=== PATIENT | female | born 1985 | race Caucasian/White ===

== ENCOUNTER → 2018-03-16 | Outpatient (CLI) | payer BC | LOC: OD 11:12 | PROVIDERS: ATTEND Nurse Practitioner | DX: N95.2 Postmenopausal atrophic vaginitis (principal) | CPT/HCPCS: 36415; 84702 ==

== ENCOUNTER → 2018-08-16 | Outpatient (CLI) | payer BC | LOC: OD 12:54 | PROVIDERS: ATTEND Surgery | DX: Z32.01 Encounter for pregnancy test, result positive (principal) | CPT/HCPCS: 36415; 84702 ==

== ENCOUNTER → 2018-08-28 | Outpatient (CLI) | payer BC | LOC: OD 13:05 | PROVIDERS: ATTEND Nurse Practitioner | DX: O20.9 Hemorrhage in early pregnancy, unspecified (principal) | CPT/HCPCS: 36415; 84702 ==

== ENCOUNTER → 2018-10-19 | Outpatient (CLI) | payer BC | LOC: OD 15:52 | PROVIDERS: ATTEND Obstetrics & Gynecology | DX: N92.6 Irregular menstruation, unspecified (principal) | CPT/HCPCS: 36415; 84144 ==

== ENCOUNTER → 2018-10-26 | Outpatient (CLI) | payer BC | LOC: OD 10:29 | PROVIDERS: ATTEND Obstetrics & Gynecology | DX: N92.6 Irregular menstruation, unspecified (principal) | CPT/HCPCS: 36415; 84144 ==

== ENCOUNTER → 2018-11-09 | Outpatient (CLI) | payer BC ==
[2018-11-09 09:14] LABS: ABSOLUTE EOSINOPHILS # (AUTO) 0.2 10^3/uL (0.0-0.6); ABSOLUTE LYMPHOCYTES (AUTO) 1.6 10^3/uL (0.5-4.7); ABSOLUTE MONOCYTES (AUTO) 0.4 10^3/uL (0.1-1.4); ABSOLUTE NEUT (AUTO) 2.8 10^3/uL (1.7-8.2); BASOPHILS % (AUTO) 0.7 % (0-2); EOSINOPHILS % (AUTO) 4.1 % (0-6); HEMATOCRIT 40.1 % (36.0-47.0); HEMOGLOBIN 13.7 g/dL (12.0-15.5); LYMPHOCYTES % (AUTO) 32.2 % (13-45); MEAN CORPUSCULAR HEMOGLOBIN 31.7 pg (27.0-33.4); MEAN CORPUSCULAR HGB CONC 34.2 g/dL (32.0-36.0); MEAN CORPUSCULAR VOLUME 93 fl (80-97); MONOCYTES % (AUTO) 7.1 % (3-13); PLATELET COUNT 266 10^3/uL (150-450); RED BLOOD COUNT 4.33 10^6/uL (3.72-5.28); RED CELL DISTRIBUTION WIDTH 12.6 % (11.5-14.0); SEGMENTED NEUTROPHILS % (AUTO) 55.9 % (42-78); TOTAL CELLS COUNTED % (AUTO) 100 %
[2018-11-09 09:57] LABS: FREE T4 (FREE THYROXINE) 0.81 ng/dL (0.78-2.19)
[2018-11-09 10:11] LABS: THYROID STIMULATING HORMONE 2.59 uIU/mL (0.47-4.68)
== END ==
LOC: OD 08:25
PROVIDERS: ATTEND Obstetrics & Gynecology
DX: N91.5 Oligomenorrhea, unspecified (principal); R53.83 Other fatigue
CPT/HCPCS: 36415; 83001; 84146; 84402; 84439; 84443; 85025

== ENCOUNTER → 2018-12-06 | Outpatient (CLI) | payer BC | LOC: OD 08:04 | PROVIDERS: ATTEND Obstetrics & Gynecology | DX: N91.5 Oligomenorrhea, unspecified (principal); R89.1 Abnormal level of hormones in specimens from other organs, systems and tissues | CPT/HCPCS: 36415; 84144; 84146 ==

== ENCOUNTER → 2019-01-14 | Outpatient (CLI) | payer BC | LOC: OD 09:59 | PROVIDERS: ATTEND Obstetrics & Gynecology | DX: N91.5 Oligomenorrhea, unspecified (principal) | CPT/HCPCS: 36415; 84144 ==

== ENCOUNTER → 2019-02-21 | Outpatient (CLI) | payer BC | LOC: LAB 10:06 | PROVIDERS: ATTEND Obstetrics & Gynecology | DX: N91.2 Amenorrhea, unspecified (principal) | CPT/HCPCS: 36415; 84702 ==

== ENCOUNTER → 2019-02-25 | Outpatient (CLI) | payer BC | LOC: OD 11:27 | PROVIDERS: ATTEND Obstetrics & Gynecology | DX: N91.2 Amenorrhea, unspecified (principal) | CPT/HCPCS: 36415; 84702 ==

== ENCOUNTER 2019-10-29 01:38 | Inpatient (IN) | payer BC ==
[2019-10-29] MEDS ORDERED: RINGERS SOLUTION,LACTATED 1,000 ML IV PRN (01:46)
[2019-10-29] MEDS ORDERED: PENICILLIN G POTASSIUM 5,000,000 UNIT in DEXTROSE 5%-WATER 100 ML IV ONE (01:46)
[2019-10-29 02:11] LABS: ABSOLUTE EOSINOPHILS # (AUTO) 0.1 10^3/uL (0.0-0.6); ABSOLUTE LYMPHOCYTES (AUTO) 1.8 10^3/uL (0.5-4.7); ABSOLUTE MONOCYTES (AUTO) 0.7 10^3/uL (0.1-1.4); ABSOLUTE NEUT (AUTO) 7.1 10^3/uL (1.7-8.2); BASOPHILS % (AUTO) 0.4 % (0-2); EOSINOPHILS % (AUTO) 1.2 % (0-6); HEMATOCRIT 36.6 % (36.0-47.0); HEMOGLOBIN 12.7 g/dL (12.0-15.5); LYMPHOCYTES % (AUTO) 18.9 % (13-45); MEAN CORPUSCULAR HEMOGLOBIN 32.4 pg (27.0-33.4); MEAN CORPUSCULAR HGB CONC 34.6 g/dL (32.0-36.0); MEAN CORPUSCULAR VOLUME 94 fl (80-97); MONOCYTES % (AUTO) 7.3 % (3-13); PLATELET COUNT 192 10^3/uL (150-450); RED BLOOD COUNT 3.91 10^6/uL (3.72-5.28); RED CELL DISTRIBUTION WIDTH 13.2 % (11.5-14.0); SEGMENTED NEUTROPHILS % (AUTO) 72.2 % (42-78); TOTAL CELLS COUNTED % (AUTO) 100 %; WHITE BLOOD COUNT 9.8 10^3/uL (4.0-10.5)
[2019-10-29 02:17] LABS: APPEARANCE,URINE SLIGHTLY-CLOUDY; BILIRUBIN,URINE NEGATIVE (NEGATIVE); COLOR,URINE YELLOW; GLUCOSE, URINE NEGATIVE (NEGATIVE); KETONES,URINE 20 mg/dL (NEGATIVE); LEUKOCYTE ESTERASE,URINE MODERATE (NEGATIVE); NITRITE,URINE NEGATIVE (NEGATIVE); PROTEIN,URINE 100 mg/dL (NEGATIVE); URINE SPECIFIC GRAVITY 1.017
[2019-10-29 02:32] LABS: URINE AMPHETAMINES SCREEN NEGATIVE; URINE BARBITURATES SCREEN NEGATIVE; URINE BENZODIAZEPINES SCREEN NEGATIVE; URINE COCAINE SCREEN NEGATIVE; URINE METHADONE SCREEN NEGATIVE; URINE PHENCYCLIDINE SCREEN NEGATIVE
[2019-10-29 02:41] LABS: URINE MARIJUANA (THC) SCREEN NEGATIVE
[2019-10-29] MEDS ORDERED: PENICILLIN G-K 5 MILLION UNIT VIAL ONE ×3 (03:10→12:40)
[2019-10-29] MEDS ORDERED: MISOPROSTOL 0.2 MG TABLET ONE (03:10)
[2019-10-29] MEDS ORDERED: OXYTOCIN/NORMAL SALINE 20 UNIT/1,000 ML RTUINJ ONE (03:10)
[2019-10-29] MEDS ORDERED: LIDOCAINE 1% INJ-PF (10 MG/ML) 30 ML SDV ONE (03:10)
[2019-10-29] MEDS ORDERED: OXYTOCIN 10 UNIT/ML VIAL ONE (03:10)
[2019-10-29] MEDS ORDERED: OXYTOCIN/NORMAL SALINE 20 UNIT/1,000 ML RTUINJ IV PRN ×2 (03:15→17:55)
[2019-10-29] MEDS ORDERED: ONDANSETRON HCL INJ/PF 4 MG/2 ML SDV ONE ×2 (05:23→11:00)
[2019-10-29] MEDS ORDERED: ONDANSETRON HCL INJ/PF 4 MG/2 ML SDV IV ONE (05:24)
--- NOTE | 2019-10-29 05:57 | Admission Physical ---
Datetime Report Generated by CPN: 10/29/2019 05:57 CURRENT ADMISSION Chief Complaint: Suspected Ruptured Membranes; Scheduled Induction of Labor Indication for Induction: PROM; Maternal Diabetes Admit Impression : Term, Intrauterine ; No Active Labor; Induction of Labor Admit Plan: Admit to Unit; Initiate Labor Induction Protocol ALLERGIES Medication Allergies: No Medication Allergies: No Known Allergies (10/29/2019) Latex: No Latex Allergies OBSTETRICAL HISTORY EDC: 10/28/2019 00:00 : 2 Para: 0 Term: 0 : 0 SAB: 0 IAB: 0 Ectopic: 0 Livin Cesareans: 0 VBACs: 0 Multiple Births: 0 Gestational Diabetes: No Rh Sensitization: No Incompetent Cervix: No ROBINA: No Infertility: Yes ART Treatment: No Uterine Anomaly: No IUGR: No Hx Previous C/S: No Macrosomia: No Hx Loss/Stillborn: No PIH: No Hx : No Placenta Previa/Abruption: No Depression/PP Depression: No PTL/PROM: No Post Hemorrhage: No Current Procedures: Ultrasound; NST Obstetrical History Comments: G1- SAB G2- current SEE RECORDS Alcohol: No Marijuana : No Cocaine: No Other Illicit Drugs: No Cigarettes: Never Smoker. [id number] MEDICAL HISTORY Diabetes: No Blood Transfusion: No Pulmonary Disease (Asthma, TB): Yes Breast Disease: Yes Hypertension: No Checker Surgery: No Heart Disease: No Hosp/Surgery: Yes Autoimmune Disorder: No Anesthetic Complications: No Kidney Disease: No Abnormal Pap Smear: No Neuro/Epilepsy: No Psychiatric Disorders: No Other Medical Diseases: No Hepatitis/Liver Disease: No Significant Family History: No Varicosities/Phlebitis: No Trauma/Violence : No Thyroid Dysfunction: No Medical History Comments: left breast lump removal, asthma INFECTIOUS HISTORY Gonorrhea: No Genital Herpes: No Chlamydia: No Tuberculosis: No Syphilis: No Hepatitis: No HIV/AIDS Exposure: No Rash or Viral Illness: No HPV: No PHYSICAL EXAM General: Normal HEENT: Normal Neurologic: Normal Thyroid: Normal Heart: Normal Lungs: Normal Breast: Normal Back: Normal Abdomen: Normal Genitourinary Exam: Normal Extremities: Normal DTRs: Normal Pelvic Type: Adequate Vital Signs: Reviewed; Within Normal Limits VAGINAL EXAM Dilatation: 2 Effacement: 70 Station: -2 MEMBRANES Pooling: Positive Membranes: Ruptured FETUS A EGA: 40.1 Monitoring: External US FHR- Baseline: 130 Variability: Moderate 6-25bpm Accelerations: 15X15 Decelerations: None FHR Category: Category I Estimated Weight (gm): 4000 Presentation: Vertex PLANS FOR LABOR AND DELIVERY Labor and Delivery: None Pain Management: None Feeding Preference: Breast Benefit of Breast Feed Discussed: Yes Circumcision: N/A INFORMED CONSENT Signature: with User ID: [email or web address]
[2019-10-29] MEDS: PENICILLIN G POTASSIUM 2,500,000 UNIT in DEXTROSE 5%-WATER 50 ML IV SCH ×3 (07:22→20:53)
[2019-10-29] MEDS ORDERED: ACETAMINOPHEN 325 MG TABLET PO ONE ×2 (08:06→18:51)
[2019-10-29] MEDS ORDERED: ACETAMINOPHEN 325 MG TABLET ONE ×2 (08:12→18:49)
[2019-10-29] MEDS ORDERED: ONDANSETRON HCL INJ/PF 4 MG/2 ML SDV IV PRN (10:59)
[2019-10-29] MEDS ORDERED: FENTANYL CITRATE INJ/PF 100 MCG/2 ML AMPUL ONE (11:08)
[2019-10-29] MEDS ORDERED: BUPIVACAINE HCL 0.25 % INJ/PF (2.5 MG/1 ML) 30 ML VIAL ONE (11:08)
[2019-10-29] MEDS ORDERED: PHENYLEPHRINE HCL INJ/PF 10 MG/1 ML SDV ONE (11:08)
[2019-10-29] MEDS ORDERED: LIDOCAINE 1.5%/EPINEPHRINE INJ 5 ML AMP ONE (11:08)
[2019-10-29] MEDS ORDERED: EPHEDRINE SULFATE INJ 50 MG/1 ML AMPULE ONE (11:08)
[2019-10-29] MEDS ORDERED: FENTANYL/BUPIVACAINE/NS/PF 300 MCG/150 ML RTUINJ EPI ONE (11:08)
[2019-10-29] MEDS ORDERED: NA PHOS,M-B/NA PHOS,DI-BA (ADULT) 133 ML ENEMA PR ONE ×2 (14:09)
[2019-10-29] MEDS ORDERED: IBUPROFEN 800 MG TABLET ONE (17:49)
[2019-10-29] MEDS ORDERED: HYDROCODONE/ACETAMINOPHEN 5-325 MG TABLET PO PRN (17:55)
[2019-10-29] MEDS ORDERED: DIBUCAINE 1% OINTMENT 56 GM TP PRN (17:55)
[2019-10-29] MEDS ORDERED: GLYCERIN/WITCH HAZEL LEAF 1 EACH MED..WIPE TP PRN (17:55)
[2019-10-29] MEDS ORDERED: DIPH/PERTUSS(ACELL)/TETANUS VAC/PF 0.5 ML SYR (>=10YO) IM PRN (17:55)
[2019-10-29] MEDS ORDERED: PROMETHAZINE HCL 25 MG SUPP.RECT PR PRN (17:55)
[2019-10-29] MEDS ORDERED: DIPHENHYDRAMINE HCL 25 MG CAPSULE PO PRN (17:55)
[2019-10-29] MEDS ORDERED: ZOLPIDEM TARTRATE 5 MG TABLET PO PRN (17:55)
[2019-10-29] MEDS ORDERED: MEASLES,MUMPS&RUBELLA VACC/PF 0.5 ML VIAL SUBCUT PRN (17:55)
[2019-10-29] MEDS ORDERED: PROMETHAZINE HCL INJ 25 MG/1 ML VIAL IV PRN (17:55)
[2019-10-29] MEDS ORDERED: MISOPROSTOL 0.2 MG TABLET PR PRN (17:55)
[2019-10-29] MEDS ORDERED: NA PHOS,M-B/NA PHOS,DI-BA (ADULT) 133 ML ENEMA PR PRN (17:55)
[2019-10-29] MEDS ORDERED: PROMETHAZINE HCL 25 MG TABLET PO PRN (17:55)
[2019-10-29] MEDS ORDERED: PSEUDOEPHEDRINE HCL 30 MG TABLET PO PRN (17:55)
[2019-10-29] MEDS ORDERED: ACETAMINOPHEN 650 MG SUPP.RECT PR PRN (17:55)
[2019-10-29] MEDS ORDERED: BENZOCAINE/MENTHOL AEROSOL SPRAY 56 ML TOP PRN (17:55)
[2019-10-29] MEDS ORDERED: MAGNESIUM HYDROXIDE SUSP 30 ML UDCUP PO PRN (17:55)
[2019-10-29] MEDS ORDERED: METHYLERGONOVINE MALEATE 0.2 MG TABLET ONE (18:13)
[2019-10-29] MEDS: METHYLERGONOVINE MALEATE 0.2 MG TABLET PO SCH (18:18)
[2019-10-29] MEDS ORDERED: CEFAZOLIN INJ 1 GM VIAL ONE (18:49)
[2019-10-29] MEDS ORDERED: CEFAZOLIN 2 GM/D5W RTU 2 GM/50 ML RTUPB IV ONE (18:50)
--- NOTE | 2019-10-29 19:48 | Delivery Summary ---
Del Sum A-C Datetime Report Generated by CPN: 10/29/2019 19:48 DELIVERY PERSONNEL DELIVERY PERSONNEL: [id number] Delivery Doctor:: Latha Liu MD Labor and Delivery Nurse:: Kelsie Mathis RNspare fixer Nurse:: Laquita Berger RN Nursery Nurse:: Qi Wahl RN Family Support Specialist/CONTACT CENTER ASSISTANT: Kerline Kelly VISUAL DESIGNER Additional Personnel: : Terrie Betancur RNC MATERNAL INFORMATION Delivery Anesthesia: Epidural Medications After Delivery: Pitocin Bolus-Please Comment; Cytotec 1000mcg Per Rectum/Vagina Estimated Blood Loss (ml): 450 Delivery QBL: 400 Maternal Complications: None Provider Comments: After delivery of the head, the shoulders and rest of the body followed easily. Cord clamping delayed 30 seconds as infant was vigorous. Infant skin to skin. Both mother and stable. LABOR SUMMARY EDC: 10/28/2019 00:00 No. Babies in Womb: 1 Attempted: No Labor Anesthesia: Epidural LABOR INFORMATION Reason for Induction: Maternal Diabetes Onset of Labor: 10/29/2019 11:00 Complete Dilatation: 10/29/2019 15:25 Cervical Ripening Agents: Cervidil Oxytocin: Augmentation Group B Beta Strep: Positive Antibiotics # of Doses: 4 Antibiotics Time of Last Dose: 1246 Name of Antibiotic Given: PCN Steroids Given: None Reason Steroids Not Administered: Not Applicable MEMBRANES Membranes Rupture Method: Spontaneous Rupture of Membranes: 10/28/2019 15:00 Length of Rupture (hr): 26.32 Amniotic Fluid Color: Clear Amniotic Fluid Amount: Moderate Amniotic Fluid Odor: Normal STAGES OF LABOR Stage 1 hr: 4 Stage 1 min: 25 Stage 2 hr: 1 Stage 2 min: 54 Stage 3 hr: 0 Stage 3 min: 5 Total Time in Labor hr: 6 Total Time in Labor min: 24 VAGINAL DELIVERY Episiotomy: None Laceration #1: Perineal Laceration Extension #1: Second Degree Laceration Repair: Yes Laceration Repair Note: Repaired with 2-0 chromic in a layered closure Sponge Count Correct: Yes Sharps Count Correct: Yes CSECTION DELIVERY Primary Indication: N/A Secondary Indication: N/A CSection Incidence: N/A Labor: N/A Elective: N/A CSection Incision: N/A BABY A INFORMATION Delivery Date/Time: 10/29/2019 17:19 Method of Delivery: Vaginal Born in Route : No : N/A Forceps: N/A Vacuum Extraction: N/A Shoulder Dystocia : No PRESENTATION/POSITION BABY A Presentation: Cephalic Cephalic Presentation: Vertex Vertex Position: Right Occipital Anterior Breech Presentation: N/A PLACENTA INFORMATION BABY A Placenta Delivery Time : 10/29/2019 17:24 Placenta Method of Delivery: Spontaneous Placenta Status: Delivered SCORES BABY A Heart Rate 1 min: >100 bpm Resp Effort 1 min: Good Cry Reflex Irritability 1 min: Cough or Sneeze or Pulls Away Muscle Tone 1 min: Active Motion Color 1 min: Blue/Pale SCORE 1 MIN: 8 Heart Rate 5 min: >100 bpm Resp Effort 5 min: Good Cry Reflex Irritability 5 min: Cough or Sneeze or Pulls Away Muscle Tone 5 min: Active Motion Color 5 min: Body [place], Extremities Blue SCORE 5 MIN: 9 INFANT INFORMATION BABY A Gestational Age at Delivery: 40.1 Gestational Status: Full Term- 39- 40.6 Weeks Outcome : Liveborn Condition : Stable Sex: Female IDENTIFICATION BABY A Verification Date/Time: 10/29/2019 17:29 ID Band Number: [id number] Mother's Name Verified: Yes RN [facility] Additional Verifying Personnel: Laquita Berger RN WEIGHT/LENGTH BABY A Infant Birthweight (gm): 3615 Infant Weight (lb): 8 Infant Weight (oz): 0 Infant Length (in): 19.25 Length (cm): 48.90 CORD INFORMATION BABY A No. Cord Vessels: 3 Nuchal Cord : N/A Cord Blood Taken: Yes-For Eval (Mom's Blood Type - or O+) Suction: Mouth; Nose ASSESSMENT BABY A Infant Complications: None Physical Findings at Delivery: Caput Succedaneum Skin to Skin: Yes Skin to Skin Time (min): 60 Infant Care By: K. Crimm RN Transferred To: Remains with Mother BABY B INFORMATION : N/A SIGNATURES Signature: with User ID: Syed : with User ID: [email or web address]
[2019-10-29] MEDS: FAMOTIDINE 20 MG TABLET PO SCH (21:13)
[2019-10-29] MEDS ORDERED: ACETAMINOPHEN 325 MG TABLET PO PRN (21:44)
[2019-10-30] MEDS ORDERED: METHYLERGONOVINE MALEATE 0.2 MG TABLET ONE ×4 (00:55→17:35)
[2019-10-30] MEDS ORDERED: IBUPROFEN 800 MG TABLET ONE (00:55)
[2019-10-30] MEDS: IBUPROFEN 800 MG TABLET PO SCH ×3 (01:00→17:40)
[2019-10-30] MEDS: METHYLERGONOVINE MALEATE 0.2 MG TABLET PO SCH ×4 (01:00→17:40)
[2019-10-30 06:35] LABS: HEMATOCRIT 33.8 % (36.0-47.0); HEMOGLOBIN 11.6 g/dL (12.0-15.5); MEAN CORPUSCULAR HEMOGLOBIN 31.9 pg (27.0-33.4); MEAN CORPUSCULAR HGB CONC 34.2 g/dL (32.0-36.0); MEAN CORPUSCULAR VOLUME 93 fl (80-97); PLATELET COUNT 218 10^3/uL (150-450); RED BLOOD COUNT 3.63 10^6/uL (3.72-5.28); RED CELL DISTRIBUTION WIDTH 13.3 % (11.5-14.0); WHITE BLOOD COUNT 17.5 10^3/uL (4.0-10.5)
[2019-10-30] MEDS: FAMOTIDINE 20 MG TABLET PO SCH ×2 (10:01→21:30)
[2019-10-30] MEDS: SENNOSIDES/DOCUSATE 8.6-50 MG 1 EACH TABLET PO SCH (10:02)
[2019-10-30] MEDS: PRENATAL VITAMIN W DHA CAPSULE PO SCH (10:02)
[2019-10-30] MEDS: FERROUS SULFATE 325 MG TABLET PO SCH ×2 (10:02→17:40)
[2019-10-30] MEDS: DOCUSATE SODIUM 100 MG CAPSULE PO SCH ×2 (10:02→17:40)
--- NOTE | 2019-10-30 14:48 | PDOC PROGRESS REPORT ---
Subjective-OB Progress Note for:: 10/30/19 Subjective: 33yo G1 now P1 s/p ppd1. Pt. is without difficulty, reports pain is well controlled with medication. Ambulating and voiding without difficulty. Has questions about hemorrhage and WBC. Reports minimal bleeding today, no other concerns. Physical Exam (OB) Vital Signs: Temp Pulse Resp BP Pulse Ox 98.4 F 89 18 95/58 L 99 10/30/19 07:40 10/30/19 07:40 10/29/19 20:47 10/30/19 07:40 10/30/19 07:40 Intake & Output 10/29/19 10/30/19 10/31/19 06:59 06:59 06:59 Weight 77 kg - General General Appearance: Appears well In distress: None - PIH/Pre-Eclampsia DTR's: 2 + Clonus: Negative Headache: Absent Epigastric Pain: No Visual Changes: No - Episiotomy/Laceration Site Condition: Well Approximated - Lochia Lochia Amount: Small 10-25 ml Lochia Color: Rubra/Red - Abdomen Description: Soft Hernia Present: No Fundal Description: Firm, Midline Fundal Height: u/u - u/2 - Respiratory Respiratory Status: No respiratory distress - Extremities Upper extremity: Normal inspection Lower extremities: Normal inspection - Neurological Cognition: Normal Orientation: AAOx4 - Psychological Associated symptoms: Normal affect, Normal mood Objective-Diagnostic Laboratory: 10/30/19 06:19 10/30/19 06:19 WBC 17.5 H RBC 3.63 L Hgb 11.6 L Hct 33.8 L MCV 93 MCH 31.9 MCHC 34.2 RDW 13.3 Plt Count 218 Assessment and Plan(PN) - Assessment and Plan (1) Encounter for induction of labor Is this a current diagnosis for this admission?: Yes Plan: delivered (2) Gestational diabetes mellitus (GDM) affecting first Is this a current diagnosis for this admission?: Yes Plan: delivered, reassess at pp visit as planned (3) Perineal laceration during delivery, delivered Is this a current diagnosis for this admission?: Yes Plan: continue to monitor for s/s of infection (4) hemorrhage Qualifiers: hemorrhage type: unspecified Qualified Code(s): O72.1 - Other immediate hemorrhage Is this a current diagnosis for this admission?: Yes Plan: continue to monitor, bleeding stable - Time Spent with Patient Time with patient: 15-25 minutes Medications reviewed and adjusted accordingly: Yes - Disposition Anticipated Discharge: Home Within: within 24 hours
[2019-10-31] MEDS: METHYLERGONOVINE MALEATE 0.2 MG TABLET PO SCH (00:18)
[2019-10-31] MEDS: IBUPROFEN 800 MG TABLET PO SCH ×2 (02:15→09:47)
[2019-10-31 06:39] LABS: HEMATOCRIT 25.5 % (36.0-47.0); MEAN CORPUSCULAR HEMOGLOBIN 32.8 pg (27.0-33.4); MEAN CORPUSCULAR VOLUME 94 fl (80-97); PLATELET COUNT 161 10^3/uL (150-450); RED BLOOD COUNT 2.72 10^6/uL (3.72-5.28); RED CELL DISTRIBUTION WIDTH 13.5 % (11.5-14.0); WHITE BLOOD COUNT 8.9 10^3/uL (4.0-10.5)
[2019-10-31 06:44] LABS: HEMOGLOBIN 8.9 g/dL (12.0-15.5)
--- NOTE | 2019-10-31 09:14 | PDOC PROGRESS REPORT ---
Subjective-OB Progress Note for:: 10/31/19 Subjective: Ready to go home. Physical Exam (OB) Vital Signs: Temp Pulse Resp BP Pulse Ox 97.9 F 70 16 102/69 97 10/30/19 20:18 10/30/19 20:18 10/30/19 20:18 10/30/19 20:18 10/30/19 20:18 - PIH/Pre-Eclampsia DTR's: 2 + Clonus: Negative Headache: Absent Epigastric Pain: No Visual Changes: No - Lochia Lochia Amount: Scant < 10 ml Lochia Color: Rubra/Red - Abdomen Description: Soft, Round Hernia Present: No Bowel Sounds: Normoactive Flatus Presence: Present Stool: No Fundal Description: Firm, Midline Fundal Height: u/u - u/2 Objective-Diagnostic Laboratory: 10/31/19 06:17 10/31/19 06:17 WBC 8.9 RBC 2.72 L Hgb 8.9 L D Hct 25.5 L MCV 94 MCH 32.8 MCHC 35.0 RDW 13.5 Plt Count 161 Assessment and Plan(PN) - Time Spent with Patient Medications reviewed and adjusted accordingly: Yes - Disposition Anticipated Discharge: Home
--- NOTE | 2019-10-31 09:23 | PDOC DISCHARGE SUMMARY ---
Impression - Admit/DC Date/PCP Admission Date/Primary Care Provider: 10/29/19 01:38 ROSA MARIA DU MD Discharge Date: 10/31/19 - Discharge Diagnosis (1) Acute blood loss anemia Is this a current diagnosis for this admission?: Yes (2) Encounter for induction of labor Is this a current diagnosis for this admission?: Yes (3) Gestational diabetes mellitus (GDM) affecting first Is this a current diagnosis for this admission?: Yes (4) Perineal laceration during delivery, delivered Is this a current diagnosis for this admission?: Yes (5) hemorrhage Is this a current diagnosis for this admission?: Yes - Additional Information Resuscitation Status: Full Code Discharge Diet: Regular Discharge Activity: Activity As Tolerated, Balance Activity w/Rest, Pelvic Rest, Slowly Increase Activity, No tub bath Referrals: ROSA MARIA DU MD [Primary Care Provider] - Prescriptions: Docusate Sodium [Colace 100 mg Capsule] 100 mg PO BID #30 capsule Ferrous Sulfate [Feosol 325 mg Tablet] 325 mg PO BID #60 tablet Home Medications: Vit,Calc76/Iron/Folic [Prenatabs Rx Tablet] 76 mg PO DAILY 10/29/19 Docusate Sodium [Colace 100 mg Capsule] 100 mg PO BID #30 capsule 10/31/19 Ferrous Sulfate [Feosol 325 mg Tablet] 325 mg PO BID #60 tablet 10/31/19 HPI Gestational Age: 40.1 wks Reason(s) for Admission: Induction of Labor Procedures: Ultrasound Intrapartum Procedure(s): Spontaneous Vaginal Delivery Complication(s): Laceration-Perineal Laceration-Degree: 2nd Results Laboratory Results: WBC 8.9 10^3/uL (4.0-10.5) 10/31/19 06:17 RBC 2.72 10^6/uL (3.72-5.28) L 10/31/19 06:17 Hgb 8.9 g/dL (12.0-15.5) L D 10/31/19 06:17 Hct 25.5 % (36.0-47.0) L 10/31/19 06:17 MCV 94 fl (80-97) 10/31/19 06:17 MCH 32.8 pg (27.0-33.4) 10/31/19 06:17 MCHC 35.0 g/dL (32.0-36.0) 10/31/19 06:17 RDW 13.5 % (11.5-14.0) 10/31/19 06:17 Plt Count 161 10^3/uL (150-450) 10/31/19 06:17 Lymph % (Auto) 18.9 % (13-45) 10/29/19 01:57 [place] % (Auto) 7.3 % (3-13) 10/29/19 01:57 Eos % (Auto) 1.2 % (0-6) 10/29/19 01:57 Baso % (Auto) 0.4 % (0-2) 10/29/19 01:57 Absolute Neuts (auto) 7.1 10^3/uL (1.7-8.2) 10/29/19 01:57 Absolute Lymphs (auto) 1.8 10^3/uL (0.5-4.7) 10/29/19 01:57 Absolute Monos (auto) 0.7 10^3/uL (0.1-1.4) 10/29/19 01:57 Absolute Eos (auto) 0.1 10^3/uL (0.0-0.6) 10/29/19 01:57 Absolute Basos (auto) 0.0 10^3/uL (0.0-0.2) 10/29/19 01:57 Seg Neutrophils % 72.2 % (42-78) 10/29/19 01:57 Urine Color YELLOW 10/29/19 01:57 Urine Appearance SLIGHTLY-CLOUDY 10/29/19 01:57 Urine pH 6.0 (5.0-9.0) 10/29/19 01:57 Ur Specific Wilmer 1.017 10/29/19 01:57 Urine Protein 100 mg/dL (NEGATIVE) H 10/29/19 01:57 Urine Glucose (UA) NEGATIVE mg/dL (NEGATIVE) 10/29/19 01:57 Urine Ketones 20 mg/dL (NEGATIVE) H 10/29/19 01:57 Urine Blood LARGE (NEGATIVE) H 10/29/19 01:57 Urine Nitrite NEGATIVE (NEGATIVE) 10/29/19 01:57 Urine Bilirubin NEGATIVE (NEGATIVE) 10/29/19 01:57 Urine Urobilinogen 2.0 mg/dL (<2.0) H 10/29/19 01:57 Ur Leukocyte Esterase MODERATE (NEGATIVE) H 10/29/19 01:57 Urine Ascorbic Acid NEGATIVE (NEGATIVE) 10/29/19 01:57 Membranes Rupture POSITIVE (NEGATIVE) H 10/29/19 02:45 Urine Opiates Screen NEGATIVE 10/29/19 01:57 Urine Methadone Screen NEGATIVE 10/29/19 01:57 Ur Barbiturates Screen NEGATIVE 10/29/19 01:57 Ur Phencyclidine Scrn NEGATIVE 10/29/19 01:57 Ur Amphetamines Screen NEGATIVE 10/29/19 01:57 U Benzodiazepines Scrn NEGATIVE 10/29/19 01:57 Urine Cocaine Screen NEGATIVE 10/29/19 01:57 U Marijuana (THC) Screen NEGATIVE 10/29/19 01:57 RPR NONREACTIVE (NONREACTIVE) 10/29/19 01:57 Blood Type O POSITIVE 10/29/19 01:57 Antibody Screen NEGATIVE 10/29/19 01:57 Plan Plan of Treatment: Follow up at [facility] in 4 wks. Time Spent: Less than 30 Minutes
[2019-10-31] MEDS: DOCUSATE SODIUM 100 MG CAPSULE PO SCH (09:47)
[2019-10-31] MEDS: FERROUS SULFATE 325 MG TABLET PO SCH (09:47)
[2019-10-31] MEDS: SENNOSIDES/DOCUSATE 8.6-50 MG 1 EACH TABLET PO SCH (09:47)
[2019-10-31] MEDS: FAMOTIDINE 20 MG TABLET PO SCH (09:53)
[2019-10-31] MEDS: PRENATAL VITAMIN W DHA CAPSULE PO SCH (09:53)
[2019-10-31 10:43] VITALS: BP 94/61
== END 2019-10-31 13:35 | disposition home or self-care (01) | DRG 806 ==
LOC: LR 01:38 → 2S 20:19
PROVIDERS: ADMIT Obstetrics & Gynecology; ATTEND Obstetrics & Gynecology
PROC: 10E0XZZ Delivery of Products of Conception, External Approach (ICD-10-PCS; principal; 2019-10-29)
PROC: 0KQM0ZZ Repair Perineum Muscle, Open Approach (ICD-10-PCS; 2019-10-29)
DX: O24.420 Gestational diabetes mellitus in childbirth, diet controlled (principal); O72.1 Other immediate postpartum hemorrhage; Z37.0 Single live birth; D62 Acute posthemorrhagic anemia; O99.824 Streptococcus B carrier state complicating childbirth; O70.1 Second degree perineal laceration during delivery; O67.8 Other intrapartum hemorrhage; Z3A.40 40 weeks gestation of pregnancy
CPT/HCPCS: 36415; 80307; 81005; 84112; 85025; 85027; 86592; 86850; 86900; 86901; 94760; J0690; J2370; J2405; J2540; J2590; J3010; J3490; J7060

== ENCOUNTER → 2020-11-19 | Outpatient (CLI) | payer BC ==
[~2020-11-19] MED LIST: COVID-19 VACCINE (PFIZER)/PF 30 MCG/0.3 ML VIAL IM ONE; EPINEPHRINE INJ/PF 1 MG/1 ML AMPULE IM PRN
== END ==
LOC: EMPHEALTH 07:54
PROVIDERS: ATTEND Internal Medicine
DX: Z23 Encounter for immunization (principal)
CPT/HCPCS: 91300

== ENCOUNTER → 2020-12-10 | Outpatient (CLI) | payer BC ==
--- OUTSIDE RECORDS SUMMARY | 2020-12-10 07:56 | XMS REPORT ---
:1985 Author Organization Formerly [facility] Address [address] [address] Care Team Providers Name Role Phone NGUYEN MICHEL Attending Clinician Unavailable Qi Escalona Unavailable Unavailable Allergies, Adverse Reactions, Alerts This patient has no known allergies or adverse reactions. Medications Ordered Filled Start Stop Current Ordering Indication Dosage Frequency Signature Comments Components Medication Medication Date Date Medication? Clinician (SIG) Name Name No Formula - Formula 28-0.8-235 10:12: 28-0.8-235 MG Oral 20 MG Oral Capsule Capsule (28-0.8-23 5 MG) Active ZyrTEC Yes ZyrTEC Allergy 10 6 Allergy 10 MG Oral 10:12: MG Oral Capsule 00 Capsule (10 MG) Active Flonase 50 Yes Flonase 50 MCG/ACT 6-06 MCG/ACT Nasal 10:11: Nasal Suspension 51 Suspension (50 MCG/ACT) Active Ipratropium No Ipratropiu Temperance - m Temperance 0.03 % 10:11: 0.03 % Nasal 42 Nasal Solution Solution (0.03 %) Active Budesonide No Budesonide 0.25 MG/2ML 04-25 0.25 Inhalation 10:11: MG/2ML Suspension 36 Inhalation Suspension (0.25 MG/2ML) Active Problems Condition Condition Condition Status Onset Resolution Last Treatin g Comments Name Details Category Date Date Treatment Clinician Date Asthma Asthma Problem Active IqraQi vann Encounter Encounter Problem Active Iqra, for for Qi education education Hayfever/ Hayfever/ Problem Active Iqra, Allergies Allergies Qi Polyp of Polyp of Problem Active Iqra, nasal nasal Qi cavity cavity Allergic Allergic Problem Active Iqra, rhinitis rhinitis Qi due to due to pollen pollen Allergic Allergic Problem Active Iqra, rhinitis, rhinitis, Qi due to due to other other allergies allergies (Renamed (Renamed from Other from Other allergic allergic rhinitis) rhinitis) Deviated Deviated Problem Active Iqra, nasal nasal Qi septum septum Follow up Follow up Problem Active Iqra, surgery surgery Qi (Renamed (Renamed from from Encounter Encounter for for examination examination following following surgery) surgery) Other Other Problem Active Iqra, chronic chronic Qi sinusitis sinusitis Procedures Procedure Date / Time Performed Performing Clinician Devic e No Known Past Surgical History 2019-04-25 00:00:00 Sachi, Josse price Blood Pressure Monitoring Iqra, Qi Flu Vaccine Iqra, Qi Pap Smear Iqra, Qi Submucosal resection of inferior Iqra, Qi turbinate (45028) Septoplasty (26994) Iqra, Qi Results Test Description Test Time Test Comments Text Results Atomic Results Result Comments SARS-CoV-2 RNA Resp Ql LISSETH+probe 2020-08-13 00:00:00 Test Item Value Reference Range Comments SARS-CoV-2 RNA Resp Ql LISSETH+probe Not detected [place] Covid Public [facility] Case ID: (test code = 45725-5) [id number] Encounters Start End Encounter Admission Attending Care Care Encounter ID Date/Time Date/Time Type Type Clinicians Facility Department 2020-03-09 2020-03-09 [facility] [id number] 2 08:00:00 08:52:50 Visit [facility] ENT Ear Nose & Th[facility] - [place] 2020-01-07 2020-01-07 Office [facility] [id number] 2 14:45:00 15:27:18 Visit [facility] ENT Ear Nose & Throat - Head & [place] 2019-12-09 2019-12-09 ALLERGY/RAQUEL [facility] [id number] 09:30:00 10:46:03 G ADMIN [facility] ENT Ear Nose & Throat - Head & [place] 2019-04-25 2019-04-25 Office [facility] [id number] 3 10:00:00 11:46:47 Visit [facility] ENT Ear Nose & Throat - Head & [place] 2018-01-01 2018-01-01 [facility] [id number] 17:15:00 17:15:00 NGUYEN Family History Family Member Diagnosis Comments Start Date Stop Date Unspecified Allergies Unspecified Hypertension Payers Payer Name Policy Type Policy Number Effective Date Expiration D ate [facility] Planned Activity Planned Date Details Comments Future Scheduled Test [code = ] Future Scheduled Test [code = ] Future Scheduled Test [code = ] Future Scheduled Test [code = ] Social History Social Habit Start Date Stop Date Comments Alcohol use former Tobacco use: Smoking Status Start Date Stop Date Never smoked tobacco (finding) Vital Signs Vital Name Observation Time Observation Value Comments Weight 2020-03-09 07:58:34 143 [lb_av] Body height 2020-03-09 07:58:34 65 [in_us] Body mass index (BMI) [Ratio] 2020-03-09 07:58:34 23.8 kg/m2 Temperature 2020-01-07 15:04:23 97.6 [degF] Weight 2020-01-07 15:04:23 148.0625 [lb_av] Height 2020-01-07 15:04:23 65 [in_us] Body Mass Index Calculated 2020-01-07 15:04:23 24.64 kg/m2 Temperature 2019-04-25 10:31:04 97.3 [degF] Method: Tymp anic Weight 2019-04-25 10:31:04 149.5 [lb_av] Height 2019-04-25 10:31:04 65 [in_us] Body Mass Index Calculated 2019-04-25 10:31:04 24.88 kg/m2 Hospital Discharge Instructions NameDatesDetailsEncounter for education : How to access health information online Indication: Encounter for educationNameDatesDetailsEncounter for education : How to access health information online Indication: Encounter for educationNameDatesDetailsNo Instruction Information Available NameDatesDetailsPolyp of nasal cavity : *Follow-up after surgery Indication: Polyp of nasal cavity Encounter for education : How to access health information online Indication: Encounter for education
== END ==
LOC: EMPHEALTH 07:53
PROVIDERS: ATTEND Internal Medicine
DX: Z23 Encounter for immunization (principal)
CPT/HCPCS: 91300